=== PATIENT | female | born 1975 | race Caucasian/White ===

== ENCOUNTER → 2016-12-16 | Outpatient (CLI) | payer BC ==
--- NOTE | 2016-12-16 08:09 | MR ---
PRE AND POSTCONTRAST ENHANCED MRI OF THE BRAIN: CLINICAL HISTORY: Headaches, nausea CONTRAST: 5ml gadavist Multiplanar and multispin-echo imaging of the brain was performed both before and after the administr ation of contrast. The ventricles, basal cisterns and sulci overlying the cerebral convexities are within normal limits. There is no evidence for midline shift or mass effect. Acute intracranial hemorrhage or extra-axial collection is not evident. There are no abnormal areas of increased or decreased signal intensity within the brain parenchyma. Following contrast administration, there is no evidence for pathologic enhancement or enhancing mass. The mastoid air cells are well-aerated. Mild mucoperiosteal thickening of the maxillary sinuses and e thmoid air cells. IMPRESSION: Unremarkable pre and postcontrast enhanced MRI of the brain. Mild mucoperiosteal thickening of the ma xillary sinuses and ethmoid air cells.
== END | disposition home or self-care (01) ==
LOC: RADMRIMAIN 06:17
PROVIDERS: ATTEND Nurse Practitioner Family
DX: R51 Headache (principal); R41.3 Other amnesia; R29.818 Other symptoms and signs involving the nervous system
CPT/HCPCS: 70553; A9581

== ENCOUNTER → 2017-12-10 | Outpatient (CLI) | payer BC ==
--- NOTE | 2017-12-10 19:15 | US ---
EXAMINATION TYPE: US transvaginal DATE OF EXAM: 12/10/2017 COMPARISON: NONE CLINICAL HISTORY: N97.9 Female infertility, unspecified. Follicular maturation including endo stripe measure each follicle. TECHNIQUE: Transvaginal (TV). Date of LMP: Now EXAM MEASUREMENTS: Uterus: 6.9 x 2.9 x 4.2 cm Endometrial Stripe: 0.2 cm Right Ovary: 2.6 x 1.6 x 1.2 cm Left Ovary: 1.9 x 1.1 x 1.5 cm 1. Uterus: Anteverted wnl 2. Endometrium: wnl 3. Right Ovary: 5 follicles seen measuring. 1..4 x .4 x .4cm Mean .4cm 2. .5 x .4 x .4cm Mean .4cm 3 .5 x .6 x .5cm Mean .5cm 4. .4 x .3 x .4cm Mean .4 cm 5. .3 x .2 x .2cm Mean .2 cm 4. Left Ovary: 6 follicles seenmeasuring. 1. .5 x .4 x .5cm Mean .5 cm 2. .4 x .4 x .5cm Mean .4cm 3. .8 x .5 x .7cm Mean .7cm 4 .5 x .4 x .5 cm Mean .5 cm 5. .4 x .3 x .5cm Mean .4 cm 6. .3 x .2 x .3cm Mean .3 cm 5. Bilateral Adnexa: wnl 6. Posterior cul-de-sac: wnl IMPRESSION: Follicular ovarian cysts as above. No adnexal mass or free fluid.
== END | disposition home or self-care (01) ==
LOC: RADUSMAIN 17:50
PROVIDERS: ATTEND Obstetrics & Gynecology Reproductive Endocrinology
DX: N83.01 Follicular cyst of right ovary (principal); N83.02 Follicular cyst of left ovary; N97.9 Female infertility, unspecified
CPT/HCPCS: 76830

== ENCOUNTER → 2017-12-23 | Outpatient (CLI) | payer BC ==
--- NOTE | 2017-12-23 23:48 | US ---
EXAMINATION TYPE: US transvaginal DATE OF EXAM: 12/23/2017 COMPARISON: US 12/10/2017 CLINICAL HISTORY: 42-year-old female N97.9 Female infertility, unspecified. Follicle measurements. TECHNIQUE: Transvaginal sonographic images were medically necessary to better assess the following a natomy: ovaries Date of LMP: 12/09/2017 FINDINGS: EXAM MEASUREMENTS: Uterus: 6.4 x 3.0 x 4.1 cm Endometrial Stripe: 1.1 cm Right Ovary: 4.5 x 3.0 x 3.5 cm for volume of 24.8 mL. Left Ovary: 2.9 x 1.8 x 2.4 cm for a volume of 6.5 mL. 1. Uterus: anteverted . Small cervical nabothian cysts and some prominent fluid within the endocervi nicole canal. 2. Endometrium: measures 1.1cm, within normal limits. 3. Right Ovary: 2.2 x 2.4 x 2.1cm cyst/follicle, 2.3 x 2.5 x 2.2cm cyst/follicle, 1.0 x 0.6 x 1.0cm follicle 4. Left Ovary: 1.3 x 1.2 x 1.7cm follicle, 0.7 x 0.4 x 0.7cm follicle 5. Bilateral Adnexa: wnl 6. Posterior cul-de-sac: small amount of free fluid IMPRESSION: 1. Prominent fluid in the endocervical canal. Query any menstrual bleeding. No discrete mass seen. Pa p smear as clinically indicated. 2. The number of follicles/cysts in the ovaries does not meet sonographic criteria for polycystic ova urmila. Further clinical correlation recommended. A few prominent cysts/follicles are present particula rly on the right and have increased in size in the interval causing mild ovarian enlargement with cys ts/follicles measure up to 2.5 cm (vs 6 mm, previously). 3. Small amount of cul-de-sac free fluid likely physiologic.
== END | disposition home or self-care (01) ==
LOC: RADUSMAIN 16:07
PROVIDERS: ATTEND Obstetrics & Gynecology Reproductive Endocrinology
DX: N83.201 Unspecified ovarian cyst, right side (principal); N83.202 Unspecified ovarian cyst, left side; N83.8 Other noninflammatory disorders of ovary, fallopian tube and broad ligament
CPT/HCPCS: 76830

== ENCOUNTER → 2017-12-31 | Outpatient (CLI) | payer BC | END | disposition home or self-care (01) | LOC: LABWHC1 16:21 | PROVIDERS: ATTEND Obstetrics & Gynecology Reproductive Endocrinology | DX: N97.9 Female infertility, unspecified (principal) | CPT/HCPCS: 36415; 84144 ==